=== PATIENT | male | born 1995 | race African-American/Black ===

== ENCOUNTER 2024-08-21 18:31 | Emergency (ER) | payer BC, OTHER ==
[2024-08-21 18:37] VITALS: BP 150/87; PULSE 85; RESP 16; TEMP 98.5; BMI 54.2
[2024-08-21] MEDS ORDERED: LIDOCAINE 2.5%/PRILOCAINE 2.5% (5 Gram/TUBE) TP ONE (20:08)
[2024-08-21] MEDS ORDERED: ACETAMINOPHEN 500 MG TABLET (FP) ONE (20:08)
[2024-08-21] MEDS ORDERED: DIPHTH,PERTUSS(ACELL),TET 0.5 ML DISP.SYRIN IM ONE (20:09)
[2024-08-21] MEDS: DIPHTH,PERTUSS(ACELL),TET 0.5 ML DISP.SYRIN IM ONE (20:14)
[2024-08-21] MEDS: ACETAMINOPHEN 500 MG TABLET (FP) PO ONE (20:15)
[2024-08-21] MEDS: LIDOCAINE 2.5%/PRILOCAINE 2.5% (5 Gram/TUBE) TP ONE (20:15)
== END 2024-08-21 22:21 | disposition home or self-care (01) ==
LOC: JERFT 18:31 → JER 18:31 → JERFT 22:21
PROC: 0HQFXZZ Repair Right Hand Skin, External Approach (ICD-10-PCS; principal; 2024-08-21)
PROC: 3E0234Z Introduction of Serum, Toxoid and Vaccine into Muscle, Percutaneous Approach (ICD-10-PCS; 2024-08-21)
DX: S61.210A Laceration without foreign body of right index finger without damage to nail, initial encounter (principal); W26.0XXA Contact with knife, initial encounter; Y99.0 Civilian activity done for income or pay
CPT/HCPCS: 90715; 99284-25